=== PATIENT | male | born 1965 | race African-American/Black ===

== ENCOUNTER 2024-07-21 12:00 | Outpatient (CLI) | payer OTHER | END 2024-07-21 12:01 | disposition home or self-care (01) | LOC: SCSMRI 12:00 | PROVIDERS: ATTEND Family Medicine | DX: S89.91XA Unspecified injury of right lower leg, initial encounter (principal); M25.461 Effusion, right knee; M25.761 Osteophyte, right knee; M65.88 Other synovitis and tenosynovitis, other site; M85.88 Other specified disorders of bone density and structure, other site; M17.11 Unilateral primary osteoarthritis, right knee ==